=== PATIENT | male | born 1970 | race Caucasian/White ===

== ENCOUNTER → 2019-04-03 | Outpatient (CLI) | payer MEDICARE, OTHER ==
[~2019-04-03] MED LIST: CATHETER FLUSH 10 ML SYR IV PRN
--- NOTE | 2019-04-03 20:05 | Diagnostic Imaging Report ---
EXAMINATION: Hepatobiliary scan with ejection fraction. INDICATION: Right upper quadrant pain. COMPARISON: There are no prior studies available for comparison. TECHNIQUE: This study was performed following administration of 5.41 mCi of 99m-technetium Choletec. One can of Ensure was also utilized for the ejection fraction calculation. FINDINGS: There is uptake of the radiotracer by the gallbladder before 30 minutes. This would weigh against the diagnosis of acute cholecystitis. There is also extension of the radiotracer into the small bowel indicating that the common bile duct is not obstructed. The ejection fraction is 37.5% (normal greater than 35%). IMPRESSION: 1. There is no evidence for acute cholecystitis or for obstruction of the common bile duct. 2. The ejection fraction is 37.5% and at the low end of normal. Dictated by: Dictated on workstation # [id number]
== END ==
LOC: CARD 11:54
PROVIDERS: ATTEND Nurse Practitioner Family
DX: R10.11 Right upper quadrant pain (principal)
CPT/HCPCS: 78226; 78227

== ENCOUNTER 2023-04-10 20:30 | Emergency (ER) | payer OTHER ==
[2023-04-10] MEDS ORDERED: KETOROLAC INJ 15 MG/ML VIAL IVP STA ×2 (20:33→22:05)
[2023-04-10] MEDS ORDERED: NS IV 1000 ML 1,000 ML IV STA (20:33)
--- NOTE | 2023-04-10 20:49 | ED Abdominal Pain ---
General Stated Complaint: L SIDE PAIN Source of Information: Patient NPO Since: [id number] History of Present Illness Date Seen by Provider: Apr 10, 2023 Time Seen by Provider: 20:32 Initial Comments 52-year-old male presenting with complaints of severe left lower abdominal and flank pain. The states this came on 3 to 4 hours ago. The had a bowel movement thinking that that may be part of the pain but it did not make any difference in the pain if anything got worse. He denies having any blood or diarrhea with this bowel movement. He denies having any pain or burning with urination and has not seen any blood in his urine. He denies having a history of pain like this in the past and has had no trauma or injury today to trigger the pain. He denies having nausea, vomiting, diarrhea, dysuria. He states that when the pain came on he was sweating with the pain and now he feels like he is getting chilled. He has a history of seasonal allergies and takes Bronwyn-D but otherwise denies any prescription medicines. No allergies to medications. He denies any abdominal surgeries in the past. He denies any personal history of any kidney stones or diverticulitis. He has not had a colonoscopy. He did not try taking anything for the pain. He rates his pain currently at a 5 out of 10 but states it was severe and had him curled up in a ball when it first started Timing/Duration: 4-6 Hours Severity/Quality: Severe, Other (spasm) Location: LLQ, Flank Activities at Onset: Activity (Working on a tractor) Modifying Factors: Worsens With Movement, Worsens With Palpation Associated Symptoms: No Back Pain, No Chest Pain; Diaphoresis (When the pain was severe); No Fever/Chills, No Fatigue, No Headache, No Heartburn, No Nausea/Vomiting, No Rash, No Shortness of Air, No Swelling/Mass in Abdomen, No Syncope, No Weakness Allergies and Home Medications Allergies Coded Allergies: No Known Allergies (Unverified Allergy, Unknown, 04/03/19) Patient Home Medication List Home Medication List Reviewed: Yes Review of Systems Review of Systems Constitutional: chills, diaphoresis (When the pain was severe); No fever EENTM: No Symptoms Reported Respiratory: No Symptoms Reported Cardiovascular: No Symptoms Reported Gastrointestinal: See HPI Genitourinary: Denies Drainage, Denies Frequency; Flank Pain; Denies Hematuria Musculoskeletal: no symptoms reported Skin: no symptoms reported Psychiatric/Neurological: No Symptoms Reported Past Htsjogd-Npsmkn-Aozluw Hx Seasonal Allergies Seasonal Allergies: Yes Past Medical History Surgeries: No Physical Exam Vital Signs Vital Signs - First Documented 04/10/23 20:31 Temp 37.4 Pulse 79 Resp 18 B/P (MAP) 144/95 (111) Pulse Ox 96 O2 Delivery Room Air Capillary Refill : Height/Weight/BMI Height: '" Weight: lbs. oz. kg; BMI Method: General Appearance: WD/WN, no apparent distress HEENT: PERRL/EOMI, pharynx normal Respiratory: chest non-tender, lungs clear, normal breath sounds, no respiratory distress, no accessory muscle use Cardiovascular: normal peripheral pulses, regular rate, rhythm Gastrointestinal: normal bowel sounds, soft, no pulsatile mass; No distended, No guarding, No rebound; tenderness (Left lower quadrant) Rectal: deferred Extremities: normal range of motion, non-tender, normal capillary refill Back: no CVA tenderness Neurologic/Psychiatric: alert, oriented x 3 Skin: normal color, warm/dry Progress/Results/Core Measures Results/Orders Lab Results Laboratory Tests Test 04/10/23 20:35 04/10/23 20:40 Range/Units Urine Color YELLOW Urine Clarity CLEAR Urine pH 5.5 5-9 Urine Specific [place] >=1.030 1.016-1.022 Urine Protein TRACE H NEGATIVE Urine Glucose (UA) NEGATIVE NEGATIVE Urine Ketones NEGATIVE NEGATIVE Urine Nitrite NEGATIVE NEGATIVE Urine Bilirubin NEGATIVE NEGATIVE Urine Urobilinogen 0.2 < = 1.0 MG/DL Urine Leukocyte Esterase NEGATIVE NEGATIVE Urine RBC (Auto) 3+ H NEGATIVE Urine RBC 25-50 H /HPF Urine WBC NONE /HPF Urine Crystals NONE /LPF Urine Bacteria NEGATIVE /HPF Urine Casts NONE /LPF Urine Mucus LARGE H /LPF Urine Culture Indicated NO White Blood Count 8.6 4.3-11.0 10^3/uL Red Blood Count 4.92 4.30-5.52 10^6/uL Hemoglobin 15.3 13.3-17.7 g/dL Hematocrit 46 40-54 % Mean Corpuscular Volume 94 80-99 fL Mean Corpuscular Hemoglobin 31 25-34 pg Mean Corpuscular Hemoglobin Concent 33 32-36 g/dL Red Cell Distribution Width 12.4 10.0-14.5 % Platelet Count 263 130-400 10^3/uL Mean Platelet Volume 9.0 9.0-12.2 fL Immature Granulocyte % (Auto) 0 % Neutrophils (%) (Auto) 62 42-75 % Lymphocytes (%) (Auto) 31 12-44 % Monocytes (%) (Auto) 5 0-12 % Eosinophils (%) (Auto) 2 0-10 % Basophils (%) (Auto) 1 0-10 % Neutrophils # (Auto) 5.3 1.8-7.8 10^3/uL Lymphocytes # (Auto) 2.6 1.0-4.0 10^3/uL Monocytes # (Auto) 0.4 0.0-1.0 10^3/uL Eosinophils # (Auto) 0.2 0.0-0.3 10^3/uL Basophils # (Auto) 0.0 0.0-0.1 10^3/uL Immature Granulocyte # (Auto) 0.0 0.0-0.1 10^3/uL Sodium Level 143 135-145 MMOL/L Potassium Level 4.2 3.6-5.0 MMOL/L Chloride Level 105 98-107 MMOL/L Carbon Dioxide Level 27 21-32 MMOL/L Anion Gap 11 5-14 MMOL/L Blood Urea Nitrogen 10 7-18 MG/DL Creatinine 1.14 0.60-1.30 MG/DL Estimat Glomerular Filtration Rate 76 BUN/Creatinine Ratio 9 Glucose Level 116 H 70-105 MG/DL Calcium Level 9.6 8.5-10.1 MG/DL Corrected Calcium 8.5-10.1 MG/DL Total Bilirubin 0.3 0.1-1.0 MG/DL Aspartate Amino Transf (AST/SGOT) 19 5-34 U/L Alanine Aminotransferase (ALT/SGPT) 26 0-55 U/L Alkaline Phosphatase 94 40-136 U/L Total Protein 7.6 6.4-8.2 GM/DL Albumin 4.7 H 3.2-4.5 GM/DL Lipase 40 8-78 U/L My Orders Orders - CAROLINA HAQUE MD Comprehensive Metabolic Panel (04/10/23 20:33) Lipase (04/10/23 20:33) Ua Culture If Indicated (04/10/23 20:33) Ed Iv/Invasive Line Start (9/5/23 20:33) Cbc With Automated Diff (04/10/23 20:33) Ct Abdomen/Pelvis Wo (04/10/23 20:33) Ns Iv 1000 Ml (Ns Iv 1000 Ml) (04/10/23 20:33) Ketorolac Injection (Ketorolac Injection (04/10/23 20:33) Vital Signs/I&O 04/10/23 20:31 Temp 37.4 Pulse 79 Resp 18 B/P (MAP) 144/95 (111) Pulse Ox 96 O2 Delivery Room Air Progress Progress Note #1: Progress Note Differential diagnosis includes kidney stone, pyelonephritis, cystitis, colitis, diverticulitis, musculoskeletal pain. Establish peripheral IV access and send labs for complete blood count, comprehensive metabolic profile, lipase. Urinalysis to look for signs of infection or blood. CT scan of the abdomen and pelvis without IV contrast to look for pathology to be causing his left lower quadrant and flank pain. Administer normal saline 1 L IV fluid bolus for hydration and Toradol 15 mg IV for pain. Progress Note #2: Time: 21:01 Progress Note Complete blood count shows a normal white blood cell count of 8.6 and normal hemoglobin 15.3. Platelets were also normal at 263. His urinalysis was concentrated for some dehydration with specific gravity greater than 1.030. There is trace proteinuria. He had 3+ blood with 25-50 red blood cells per high-power field and mucus but no bacteria, nitrites, leukocyte esterase to indicate a UTI. With the hematuria this is likely to be a kidney stone but we will see what his comprehensive metabolic profile and the CT scan show. 2151 comprehensive metabolic profile does not show any acute electrolyte a bnormalities to account for his pain. The radiologist read the CT scan as having a 5 x 4 mm kidney stone in the mid ureter with mild to moderate hydroureter and hydronephrosis on the left side. Otherwise no acute abnormality throughout the belly to account for his pain. Patient reports that his pain was resolved with the Toradol. Will housing counselor on kidney stone information as well as kidney stone diet. Encourage fluids and hydration. Send with a strainer so he could strain his urine in case the stone passes. Start him on Flomax to try and help relax the ureter to hopefully help the stone pass. Prescribed hydrocodone/acetaminophen 5/325 1 every 4-6 hours as needed for severe pain and send him with a take-home pack. Given information for Dr. Díaz with urology for possible follow-up as he could go see what ever urologist he chooses but he should follow-up with urology as they may need to break up the stone or pull it out. Diagnostic Imaging Diagonstic Imaging: CT Plain Films/CT/US/NM/MRI: abdomen, pelvis Comments NAME: VERN OSULLIVAN [facility] REC#: [id number] PT STATUS: REG ER : 1970 PHYSICIAN: CAROLINA HAQUE MD ADMIT DATE: 04/10/23/ER FS Draft Date of Exam:04/10/23 CT ABDOMEN/PELVIS WO PROCEDURE: CT abdomen and pelvis without contrast. TECHNIQUE: Multiple contiguous axial images were obtained through the abdomen and pelvis without the use of intravenous contrast. Auto Exposure Controls were utilized during the CT exam to meet ALARA standards for radiation dose reduction. INDICATION: Left flank pain. COMPARISON: None FINDINGS: Included portions of the lung bases are clear. CT ABDOMEN: There is colonic diverticulosis, but no CT evidence of acute diverticulitis. Normal appendix is identified. Small bowel loops are nondilated. 5 x 4 mm calculus is identified within the mid to upper left ureter. As a result, there is mild proximal hydroureteronephrosis. No other renal or ureteral calculi are seen. Hypodense left renal cyst is noted. Adrenal glands, spleen, pancreas, and liver have an unremarkable noncontrast CT appearance. There is no loculated fluid collection, free fluid or free air within the abdomen. No abnormal mesenteric or retroperitoneal adenopathy is seen. Osseous structures show no acute abnormalities. CT PELVIS: Urinary bladder is unopacified and minimally distended. No calculi identified within the urinary bladder. There is no loculated fluid collection, free fluid or free air within the pelvis. No abnormal lymph nodes are identified. Osseous structures show no acute abnormalities. IMPRESSION: 1. A 5 x 4 mm calculus is seen within the left mid and upper ureter. This results in mild proximal hydroureteronephrosis. Dictated on workstation # [id number] Dict: 04/10/232135 Trans: 04/10/232147 [facility] [id number] Interpreted by: SANTHOSH GOLDMAN MD Electronically signed by: Reviewed: Reviewed by Me Departure Impression Primary Impression: Calculus of left ureter Additional Impressions: Left lower quadrant abdominal pain Hematuria Qualified Codes: R31.29 - Other microscopic hematuria Renal colic on left side Disposition: 01 HOME, SELF-CARE Condition: Improved Departure-Patient Inst. Decision time for Depature: 21:59 Referrals: AMILCAR MOYA APRN (PCP) Primary Care Physician Patient Instructions: Blood in Urine (Hematuria), Adult ED, Kidney Stone, Adult ED, Kidney Stone Diet, How to Strain Your Urine Add. Discharge Instructions: Drink more water and electrolyte drinks to stay better hydrated. Use the Flomax (Tamsulosin) to help relax the ureter to help the kidney stone try to pass. Strain your urine when you urinate to see if you might be able to catch the stone if it passes on its own. For severe pain take the Hydrocodone/Acetaminophen 5/325 1 pill every 4 to 6 hours as needed for severe pain. Consider taking Miralax or a stimulant laxative if you are having to take the narcotic pain medicine. Follow up with Urology as they may need to break the stone up or remove it from your ureter. Dr. Díaz is a Urologist with [facility] out [facility]. He does come to [employer] periodically to see patients as well. His office number is [phone]. Scripts Hydrocodone/Acetaminophen (Hydrocodone-Acetamin 5-325 mg) 5 Mg-325 Mg Tablet 1 TAB PO Q4H PRN for PAIN SEVERE for 3 Days, #18 TAB 0 Refills Prov: CAROLINA HAQUE MD 04/10/23 Tamsulosin HCl (Flomax) 0.4 Mg Cap 0.4 MG PO DAILY for Renal Colic for 5 Days, #5 CAP 0 Refills Prov: CAROLINA HAQUE MD 04/10/23 CAROLINA HAQUE MD Apr 10, 2023 20:49
[2023-04-10 20:50] LABS: BASOPHILS % (AUTO) 1 % (0-10); EOSINOPHILS # (AUTO) 0.2 10^3/uL (0.0-0.3); EOSINOPHILS % (AUTO) 2 % (0-10); HEMATOCRIT 46 % (40-54); HEMOGLOBIN 15.3 g/dL (13.3-17.7); LYMPHOCYTES # (AUTO) 2.6 10^3/uL (1.0-4.0); LYMPHOCYTES % (AUTO) 31 % (12-44); MEAN CORPUSCULAR HEMOGLOBIN 31 pg (25-34); MEAN CORPUSCULAR HGB CONC 33 g/dL (32-36); MEAN CORPUSCULAR VOLUME 94 fL (80-99); MONOCYTES # (AUTO) 0.4 10^3/uL (0.0-1.0); MONOCYTES % (AUTO) 5 % (0-12); NEUTROPHILS # (AUTO) 5.3 10^3/uL (1.8-7.8); NEUTROPHILS % (AUTO) 62 % (42-75); PLATELET COUNT 263 10^3/uL (130-400); WHITE BLOOD COUNT 8.6 10^3/uL (4.3-11.0)
[2023-04-10 20:52] LABS: BILIRUBIN,URINE NEGATIVE (NEGATIVE); CLARITY,URINE CLEAR; COLOR,URINE YELLOW; GLUCOSE, URINE (UA) NEGATIVE (NEGATIVE); KETONES,URINE NEGATIVE (NEGATIVE); LEUKOCYTE ESTERASE ,URINE NEGATIVE (NEGATIVE); NITRITE,URINE NEGATIVE (NEGATIVE); PH,URINE 5.5 (5-9); PROTEIN,URINE TRACE (NEGATIVE)
[2023-04-10 20:59] LABS: BACTERIA,URINE NEGATIVE /HPF; RBC,URINE 25-50 /HPF
[2023-04-10 21:13] LABS: ALANINE AMINOTRANSFERASE 26 U/L (0-55); ALBUMIN 4.7 GM/DL (3.2-4.5); ALKALINE PHOSPHATASE 94 U/L (40-136); BILIRUBIN,TOTAL 0.3 MG/DL (0.1-1.0); BUN/CREATININE RATIO 9; CALCIUM 9.6 MG/DL (8.5-10.1); CARBON DIOXIDE 27 MMOL/L (21-32); CHLORIDE 105 MMOL/L (98-107); CREATININE SERUM 1.14 MG/DL (0.60-1.30); GFR ESTIMATED 76; GLUCOSE 116 MG/DL (70-105); LIPASE 40 U/L (8-78); POTASSIUM 4.2 MMOL/L (3.6-5.0); SODIUM 143 MMOL/L (135-145); TOTAL PROTEIN 7.6 GM/DL (6.4-8.2)
--- NOTE | 2023-04-10 21:50 | Diagnostic Imaging Report ---
PROCEDURE: CT abdomen and pelvis without contrast. TECHNIQUE: Multiple contiguous axial images were obtained through the abdomen and pelvis without the use of intravenous contrast. Auto Exposure Controls were utilized during the CT exam to meet ALARA standards for radiation dose reduction. INDICATION: Left flank pain. COMPARISON: None FINDINGS: Included portions of the lung bases are clear. CT ABDOMEN: There is colonic diverticulosis, but no CT evidence of acute diverticulitis. Normal appendix is identified. Small bowel loops are nondilated. 5 x 4 mm calculus is identified within the mid to upper left ureter. As a result, there is mild proximal hydroureteronephrosis. No other renal or ureteral calculi are seen. Hypodense left renal cyst is noted. Adrenal glands, spleen, pancreas, and liver have an unremarkable noncontrast CT appearance. There is no loculated fluid collection, free fluid or free air within the abdomen. No abnormal mesenteric or retroperitoneal adenopathy is seen. Osseous structures show no acute abnormalities. CT PELVIS: Urinary bladder is unopacified and minimally distended. No calculi identified within the urinary bladder. There is no loculated fluid collection, free fluid or free air within the pelvis. No abnormal lymph nodes are identified. Osseous structures show no acute abnormalities. IMPRESSION: 1. A 5 x 4 mm calculus is seen within the left mid and upper ureter. This results in mild proximal hydroureteronephrosis. Dictated by: Dictated on workstation # [id number]
[2023-04-10] MEDS ORDERED: TMSL.4C PO (21:58)
[2023-04-10] MEDS ORDERED: ACHD5005 PO (21:58)
[2023-04-10] MEDS ORDERED: TAMSULOSIN 0.4 MG (FLOMAX) CAP PO STA (21:59)
[2023-04-10] MEDS ORDERED: fentaNYL INJECTION 100 MCG/2 ML VIAL IVP STA (22:05)
[2023-04-10 22:40] VITALS: BP 140/91
== END 2023-04-10 22:40 | disposition home or self-care (01) ==
LOC: EDUNIT# 20:30 → ER FS 20:32
DX: N13.2 Hydronephrosis with renal and ureteral calculous obstruction (principal)
CPT/HCPCS: 36415; 74176; 80053; 81000; 83690; 85025

== ENCOUNTER 2023-04-20 18:52 | Emergency (ER) | payer OTHER ==
[~2023-04-20] VITALS: Ht 185 cm; Wt 104.5 kg
[~2023-04-20 18:52] MED LIST changes: +ACHD5005 PO; -CATHETER FLUSH 10 ML SYR IV PRN; +TMSL.4C PO
[2023-04-20 18:55] VITALS: BP 132/81
--- NOTE | 2023-04-20 19:06 | ED GU-Male ---
General Stated Complaint: URINARY RETENTION Source: patient, old records Exam Limitations: no limitations History of Present Illness Date Seen by Provider: Apr 20, 2023 Time Seen by Provider: 18:55 Initial Comments 52-year-old male with recent history of ureterolithiasis that had the kidney stone removed by the urologist last week coming in due to urinary frequency. This started mostly yesterday, he feels like he urinates, and then immediately needs to urinate again. Denies any burning, flank pain, fever, abdominal pain, or any other concerns. He was on ciprofloxacin after his procedure, he has been off of this for several days. Otherwise denying any other acute complaints. He states this feels nothing like when he had a kidney stone. Allergies and Home Medications Allergies Coded Allergies: No Known Allergies (Unverified Allergy, Unknown, 04/03/19) Patient Home Medication List Home Medication List Reviewed: Yes Hydrocodone/Acetaminophen (Hydrocodone-Acetamin 5-325 mg) 5 Mg-325 Mg Tablet, 1 TAB PO Q4H PRN for PAIN SEVERE Prescribed by: CAROLINA HAQUE on 04/10/232157 Phenazopyridine HCl (Pyridium) 100 Mg Tablet, 100 MG PO TID Prescribed by: ALICE MARTINEZ on 04/20/231921 Tamsulosin HCl (Flomax) 0.4 Mg Cap, 0.4 MG PO DAILY Prescribed by: CAROLINA HAQUE on 04/10/232157 Review of Systems Review of Systems Constitutional: No fever EENTM: no symptoms reported Respiratory: no symptoms reported Cardiovascular: no symptoms reported Gastrointestinal: no symptoms reported Genitourinary: see HPI Musculoskeletal: no symptoms reported Skin: no symptoms reported Psychiatric/Neurological: No Symptoms Reported Endocrine: No Symptoms Reported Hematologic/Lymphatic: No Symptoms Reported All Other Systemes Reviewed Negative Unless Noted: Yes Past Qxulhby-Uhmarp-Kfmmoa Hx Seasonal Allergies Seasonal Allergies: Yes Past Medical History Surgery/Hospitalization HX: kidney stone removal Surgeries: Yes Physical Exam Vital Signs Vital Signs - First Documented 04/20/23 18:55 Temp 36.7 Pulse 103 Resp 16 B/P (MAP) 132/81 (98) Pulse Ox 99 O2 Delivery Room Air Capillary Refill : Height, Weight, BMI Height: '" Weight: lbs. oz. kg; BMI Method: General Appearance: WD/WN, no apparent distress HEENT: PERRL/EOMI, normal ENT inspection, pharynx normal Neck: non-tender, full range of motion, supple, normal inspection Cardiovascular: regular rate, rhythm, no edema, no murmur Respiratory: chest non-tender, lungs clear, normal breath sounds, no respiratory distress, no accessory muscle use Gastrointestinal: normal bowel sounds, non tender, soft; No distended, No guarding, No rebound Back: normal inspection, no CVA tenderness Extremities: normal range of motion, non-tender, normal inspection, no pedal edema, no calf tenderness, normal capillary refill Neurologic/Psychiatric: no motor/sensory deficits, alert, normal mood/affect Skin: normal color, warm/dry Progress/Results/Core Measures Suspected Sepsis SIRS Temperature: Pulse: Respiratory Rate: Blood Pressure / Mean: Results/Orders Lab Results Laboratory Tests Test 04/20/23 19:02 Range/Units Urine Color DARK YELLOW Urine Clarity TURBID Urine pH 5.5 5-9 Urine Specific [place] >=1.030 1.016-1.022 Urine Protein 2+ H NEGATIVE Urine Glucose (UA) NEGATIVE NEGATIVE Urine Ketones NEGATIVE NEGATIVE Urine Nitrite NEGATIVE NEGATIVE Urine Bilirubin NEGATIVE NEGATIVE Urine Urobilinogen 0.2 < = 1.0 MG/DL Urine Leukocyte Esterase TRACE H NEGATIVE Urine RBC (Auto) 3+ H NEGATIVE Urine RBC TNTC H /HPF Urine WBC /HPF Urine Crystals NONE /LPF Urine Bacteria /HPF Urine Casts NONE /LPF Urine Mucus NEGATIVE /LPF Urine Culture Indicated YES My Orders Orders - ALICE MARTINEZ MD Ua Culture If Indicated (04/20/23 19:02) Phenazopyridine Tablet (Phenazopyridine (04/20/23 19:15) Urine Culture (04/20/23 19:02) Medications Given in ED Current Medications Medications Dose Ordered Sig/Reji Route Start Time Stop Time Status Last Admin Dose Admin Phenazopyridine HCl 100 mg ONCE ONCE PO 04/20/23 19:15 04/20/23 19:16 DC 04/20/23 19:12 100 MG Vital Signs/I&O 04/20/23 18:55 Temp 36.7 Pulse 103 Resp 16 B/P (MAP) 132/81 (98) Pulse Ox 99 O2 Delivery Room Air Capillary Refill : Progress Note : Progress Note 52-year-old male presenting for urinary frequency. ABCs were intact and vitals were stable on presentation. Physical exam reassuring including a soft and nontender abdomen. The patient was able to urinate, and afterwards I was able to do an ultrasound to check his postvoid residual. He has less than 10 cc of urine left in his bladder which is reassuring that he is not retaining. We will send a urinalysis to check for infection and given Pyridium to try to help with symptoms. I reviewed the chart from April 10, he had a CT scan showing a left-sided ureteral stone. He had this removed by her urologist. His kidney function was normal that day. Urinalysis here with too numerous to count red blood cells. This is consistent with having instrumentation recently to have his kidney stone removed. He was given Pyridium here for symptom management and we will also send a prescription. I will have him follow-up with his urologist on Sunday. I believe he stable for discharge with outpatient follow-up. He was sent home with strict return precautions. Update, just prior to discharge, going over the final paperwork and patient mentions he has a ureteral stent in place since the procedure last week. This is most definitely the cause of his symptoms. He is going back to his urologist on Sunday to have it removed. Departure Impression Primary Impression: Urinary frequency Disposition: HOME, SELF-CARE Condition: Stable Departure-Patient Inst. Decision time for Depature: 19:30 Referrals: AMILCAR MOYA APRN (PCP) Primary Care Physician [facility] (Family) Primary Care Physician Patient Instructions: Bladder Retraining Add. Discharge Instructions: A prescription will be sent to her pharmacy to try to help with the discomfort. It is possible you are having bladder spasms as well. See if the prescription helps throughout the weekend, if it does not, follow-up with your urologist or your primary doctor on Sunday. Fortunately, there is no infection based on the urinalysis today. The prescription we are sending will turn your urine an orange-n[place] color which is expected. Scripts Phenazopyridine HCl (Pyridium) 100 Mg Tablet 100 MG PO TID for 2 Days, #6 TAB Prov: ALICE MARTINEZ MD 04/20/23 ALICE MARTINEZ MD Apr 20, 2023 19:06
[2023-04-20 19:08] LABS: BILIRUBIN,URINE NEGATIVE (NEGATIVE); GLUCOSE, URINE (UA) NEGATIVE (NEGATIVE); KETONES,URINE NEGATIVE (NEGATIVE); LEUKOCYTE ESTERASE ,URINE TRACE (NEGATIVE); NITRITE,URINE NEGATIVE (NEGATIVE); PH,URINE 5.5 (5-9); PROTEIN,URINE 2+ (NEGATIVE)
[2023-04-20 19:09] LABS: CLARITY,URINE TURBID
[2023-04-20 19:11] LABS: COLOR,URINE DARK YELLOW; RBC,URINE TNTC /HPF
[2023-04-20] MEDS ORDERED: PHENAZOPYRIDINE 100 MG TABLET PO ONE (19:15)
[2023-04-20] MEDS ORDERED: PHEN-639 PO (19:22)
== END 2023-04-20 19:23 | disposition home or self-care (01) ==
LOC: EDUNIT# 18:52 → ER FS 18:53
DX: R35.0 Frequency of micturition (principal); Z87.442 Personal history of urinary calculi
CPT/HCPCS: 81000; 87088; 99283